=== PATIENT | male | born 1960 | race Caucasian/White ===

== ENCOUNTER 2016-09-08 14:34 | Emergency (ER) | payer OTHER ==
--- NOTE | 2016-09-08 14:55 | CPEKG ---
Heart Rate: 67 RR Interval: 896 P-R Interval: 197 QRSD Interval: 166 QT Interval: 492 QTC Interval: 520 P [place]: -8 QRS [place]: -25 T Wave [place]: 107 EKG Severity - ABNORMAL ECG - EKG Impression: SINUS RHYTHM EKG Impression: LEFT BUNDLE BRANCH BLOCK Electronically Signed By: Candido Graves 08-Sep-2016 15:31:44
--- NOTE | 2016-09-08 15:03 | EDPHY ---
H & P Time Seen by Provider: 09/08/16 15:00 HPI/ROS: HPI: ROS: I am cancelling this chart out and will start a new 1 Smoking Status: Never smoked Constitutional: Initial Vital Signs Temperature (C) 36.5 C 09/08/16 14:43 Heart Rate 66 09/08/16 14:43 Respiratory Rate 22 H 09/08/16 14:43 Blood Pressure 173/88 H 09/08/16 14:43 O2 Sat (%) 95 09/08/16 14:43 O2 Delivery Mode Room Air Allergies/Adverse Reactions: metoprolol Allergy (Severe, Verified 09/08/16 14:42) Hives Home Medications: Medication Instructions Recorded Atorvastatin Calcium [Lipitor 10 10 mg PO HS 03/06/15 mg (*)] Carvedilol [Coreg (*)] 50 mg PO BIDMEAL 03/06/15 Clonidine HCl 0.2 mg PO BID 03/06/15 Furosemide [Lasix 40 MG (*)] 40 mg PO DAILY PRN 03/06/15 hydrALAZINE [Apresoline 50 mg (*)] 100 mg PO TID 03/06/15 Medical Decision Making - Data Points Laboratory Results: 09/08/16 14:50 WBC Pending RBC Pending Hgb Pending Hct Pending MCV Pending MCH Pending MCHC Pending RDW Pending Plt Count Pending MPV Pending Neut % (Auto) Pending Lymph % (Auto) Pending [place] % (Auto) Pending Eos % (Auto) Pending Baso % (Auto) Pending Nucleat RBC Rel Count Pending Absolute Neuts (auto) Pending Absolute Lymphs (auto) Pending Absolute Monos (auto) Pending Absolute Eos (auto) Pending Absolute Basos (auto) Pending Absolute Nucleated RBC Pending Immature Gran % Pending Immature Gran # Pending Sodium Pending Potassium Pending Chloride Pending Carbon Dioxide Pending Anion Gap Pending BUN Pending Creatinine Pending Estimated GFR Pending Glucose Pending Calcium Pending
[2016-09-08 15:06] LABS: % IMMATURE GRANULYOCYTES 0.3 % (0.0-1.1); ABSOLUTE IMMATURE GRANULOCYTES 0.02 10^3/uL (0.00-0.10); ADD DIFF? NO; ADD MORPH? NO; ADD SCAN? NO; ATYPICAL LYMPHOCYTE FLAG 0 (0-99); FRAGMENT RBC FLAG 0 (0-99); HEMATOCRIT 44.7 % (40.0-51.0); HEMOGLOBIN 15.6 g/dL (13.7-17.5); LEFT SHIFT FLG 0 (0-99); LIPEMIA HEMOLYSIS FLAG 90 (0-99); MEAN CELL HEMOGLOBIN 30.5 pg (27.9-34.1); MEAN CELL HEMOGLOBIN CONCENTR. 34.9 g/dL (32.4-36.7); MEAN CELL VOLUME 87.3 fL (81.5-99.8); PLATELET CLUMPS FLAG 0 (0-99); PLATELET COUNT 175 10^3/uL (150-400); RED BLOOD CELL COUNT 5.12 10^6/uL (4.40-6.38)
[2016-09-08 15:21] LABS: ANION GAP 11 mEq/L (8-16); CARBON DIOXIDE 25 mEq/l (22-31); CHLORIDE 105 mEq/L (97-110); CREATININE 1.1 mg/dL (0.7-1.3); GLOMERULAR FILTRATION RATE > 60; GLUCOSE 89 mg/dL (70-100); POTASSIUM 4.3 mEq/L (3.5-5.2); SODIUM 141 mEq/L (134-144)
--- NOTE | 2016-09-08 15:22 | EDPHY ---
H & P Time Seen by Provider: 09/08/16 15:00 HPI/ROS: Chief complaint. Shortness of breath HPI. 55-year-old male with history of congestive heart failure presents with 1 week history of exertional shortness of breath. He was cross[place]country skiing and [facility] 1 month ago without problem now for the past week he short of breath with climbing 1 flight of stairs. He has a pain in his right neck for a week but is not worse with exertion. His shortness of breath is worse with exertion as well as lying down and better with standing. He has been sleeping in a chair. Can't sleep flat. Recent 5 lb weight gain. However no unusual pain or swelling to his ankles. He has been taking his diuretics intermittently as he only has 1 kidney. Denies fever ROS Constitutional. no fever/chills, no weakness Eyes. no problems with vision ENT. no sore throat, no nasal drainage Cardiovascular. no chest pain Respiratory. Shortness of breath with exertion Abdominal. no abdominal pain, no nausea/vomiting, no diarrhea . no problems urinating MS. Right-sided neck pain Skin. no rash Lymph. no swollen glands Neuro. no headache, no dizziness, no difficulty walking or with speech Past Medical/Surgical History: Past medical history is significant congestive heart failure, left bundle branch block, chronic renal insufficiency secondary to 1 kidney, nonischemic cardiomyopathy, dyslipidemia Social History: , nonsmoker, no alcohol Smoking Status: Never smoked Physical Exam: General Appearance: Alert well-developed male mild distress vital signs are stable Eyes: Pupils equal and round no pallor or injection. ENT, Mouth: Mucous membranes are moist. Respiratory: There are no retractions, lungs are clear to auscultation. Cardiovascular: Regular rate and rhythm. Gastrointestinal: Abdomen is soft and nontender, no masses, bowel sounds normal. Neurological: Awake and alert, sensory and motor exams grossly normal. Skin: Warm and dry, no rashes. Musculoskeletal: Neck is supple nontender. Extremities trace pedal edema Psychiatric: Patient is oriented X 3, there is no agitation. Constitutional: Initial Vital Signs Temperature (C) 36.5 C 09/08/16 14:43 Heart Rate 66 09/08/16 14:43 Respiratory Rate 22 H 09/08/16 14:43 Blood Pressure 173/88 H 09/08/16 14:43 O2 Sat (%) 95 09/08/16 14:43 O2 Delivery Mode Room Air Allergies/Adverse Reactions: metoprolol Allergy (Severe, Verified 09/08/16 14:42) Hives Home Medications: Medication Instructions Recorded Atorvastatin Calcium [Lipitor 10 10 mg PO HS 03/06/15 mg (*)] Carvedilol [Coreg (*)] 50 mg PO BIDMEAL 03/06/15 Clonidine HCl 0.2 mg PO BID 03/06/15 Furosemide [Lasix 40 MG (*)] 40 mg PO DAILY PRN 03/06/15 hydrALAZINE [Apresoline 50 mg (*)] 100 mg PO TID 03/06/15 Medical Decision Making - Diagnostics EKG Interpretation: EKG interpreted by me shows normal sinus rhythm with left axis deviation and normal interval. Left bundle branch block. No significant ST elevation or depression. Rate is 67 Imaging: Chest x-ray interpreted by me consistent with mild CHF. No evidence for pneumonia Discussion with Dr. Ardon who notes that patient has new elevation of the right hemidiaphragm as well as some fullness to the mediastinum that was not present on previous chest x-ray CT angiogram chest interpreted by me and reviewed with Dr. Luna shows no evidence of pulmonary embolus. Normal aorta without dissection or aneurysm. Normal mediastinum Procedures: IV normal saline, monitor ED Course/Re-evaluation: Re-evaluation at 5:30 p.m. . Patient is stable. Patient and I discussed imaging, EKG, laboratory evaluation. We discussed treatment plan. I offered admission for further evaluation and echocardiogram. The patient declines and would like to follow up with [facility] as an outpatient. We discussed there may be some risk involved with this. He is encouraged to return for worsening breathing or chest discomfort. Patient expresses understanding and agreement Differential Diagnosis: I considered congestive heart failure, pulmonary embolus, aortic dissection, pneumonia, acute coronary syndrome - Data Points Laboratory Results: Laboratory Results 09/08/16 14:50 09/08/16 14:50 09/08/16 09/08/16 Unknown 14:50 WBC 7.98 10^3/uL (3.80-9.50) RBC 5.12 10^6/uL (4.40-6.38) Hgb 15.6 g/dL (13.7-17.5) Hct 44.7 % (40.0-51.0) MCV 87.3 fL (81.5-99.8) MCH 30.5 pg (27.9-34.1) MCHC 34.9 g/dL (32.4-36.7) RDW 14.0 % (11.5-15.2) Plt Count 175 10^3/uL (150-400) MPV 11.0 fL (8.7-11.7) Neut % (Auto) 66.0 % (39.3-74.2) Lymph % (Auto) 23.7 % (15.0-45.0) [place] % (Auto) 9.5 % (4.5-13.0) Eos % (Auto) 0.1 L % (0.6-7.6) Baso % (Auto) 0.4 % (0.3-1.7) Nucleat RBC Rel Count 0.0 % (0.0-0.2) Absolute Neuts (auto) 5.27 10^3/uL (1.70-6.50) Absolute Lymphs (auto) 1.89 10^3/uL (1.00-3.00) Absolute Monos (auto) 0.76 10^3/uL (0.30-0.80) Absolute Eos (auto) 0.01 L 10^3/uL (0.03-0.40) Absolute Basos (auto) 0.03 10^3/uL (0.02-0.10) Absolute Nucleated RBC 0.00 10^3/uL (0-0.01) Immature Gran % 0.3 % (0.0-1.1) Immature Gran # 0.02 10^3/uL (0.00-0.10) Sodium 141 mEq/L (134-144) Potassium 4.3 mEq/L (3.5-5.2) Chloride 105 mEq/L (97-110) Carbon Dioxide 25 mEq/l (22-31) Anion Gap 11 mEq/L (8-16) BUN 27 H mg/dL (7-23) Creatinine 1.1 mg/dL (0.7-1.3) Estimated GFR > 60 Glucose 89 mg/dL (70-100) Calcium 9.0 mg/dL (8.5-10.4) Troponin I < 0.012 ng/mL (0-0.034) NT-Pro-B Natriuret Pep 217 H pg/mL (0-125) Medications Given: Discontinued Medications Sodium Chloride (Ns) 500 mls @ 0 mls/hr IV ONCE ONE PRN Reason: As Directed Stop: 09/08/16 15:57 Last Admin: 09/08/16 16:05 Dose: 500 mls Departure - Departure Disposition: Home, Routine, Self-Care Clinical Impression: Dyspnea Qualifiers: Dyspnea type: dyspnea on exertion Qualifier Code: (R06.09) Other forms of dyspnea Condition: Good Instructions: Dyspnea (ED), Dyspnea Scale and Exercise (ED) Additional Instructions: Continue regular medications. Easy activity. Return for worsening breathing, fever, chest discomfort. Follow up with Dr. burr in the next few days if not improving and try to move your appointment with [facility] up. Referrals: RAMBO BAJWA [Primary Care Provider] - 2-3 days, if not improved
--- NOTE | 2016-09-08 15:53 | DX ---
Chest, PA and Lateral History: Dyspnea on exertion , history of heart and kidney disease Comparison: March 06, 2015 Findings: There is new mild elevation of the right hemidiaphragm associated with possible new right m ediastinal widening.. Lungs are clear, without infiltrate or consolidation. Heart size is larger lobito n previously, but still normal. The pulmonary vascularity remains normal. There is no pulmonary nodul e or mass lesion. There is no pleural effusion or pneumothorax. Bones are unremarkable for age. EKG l anton overlie the chest. There is stable low cervical orthopedic fixation fusion hardware. Impression: New right diaphragmatic elevation with possible right mediastinal mass. Recommend chest C T with IV contrast for further evaluation. If there is concern for diaphragmatic paralysis, then cons ider a fluoroscopic "sniff test". Results discussed with Dr. Candido Graves at 3:48 p.m.
[2016-09-08] MEDS ORDERED: NS 500 ML IV ONE (15:56)
[2016-09-08 16:12] LABS: TROPONIN I < 0.012 ng/mL (0-0.034)
[2016-09-08] MEDS ORDERED: IOPAMIDOL (ISOVUE 370) 100 ML BTL IV ONE (16:12)
--- NOTE | 2016-09-08 17:40 | CT ---
CT Pulmonary Angiogram History: Possible mediastinal widening, dyspnea. Technique: Axial contrast-enhanced images were obtained through the chest following the uneventful in travenous administration of 90 mL Isovue-370. Creatinine is 1.1. Multiplanar reformations were perf ormed through the pulmonary arteries. Dose reduction techniques were utilized. Comparison: PA and lateral chest September 08, 2016, March 06, 2015, January 15, 2011. Findings: This is a good quality study with visualization of the vessels to the subsegmental level. There is no visible pulmonary embolus. There is mild diffuse peribronchial thickening, with mild ri ght basilar atelectasis. Mild cardiomegaly is present. Mild coronary artery atherosclerosis is pres ent, most prominent in the LAD. The aorta is normal caliber, without dissection. No pathologically enlarged lymph nodes are identified. Multiple venous collaterals are noted over the left neck and ch est, with narrowing of the left subclavian vein. Cervical fusion hardware is incompletely visualized . 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 Mild compression fractures in the thoracic spine are stable. The gallbladder is decompressed. Contour irregularity of the spleen suggests sequela of old infarct or trauma. There are separate origins of the hepatic and gastric and splenic arteries from the aorta , a normal variant, with mild stenoses at their origins. Impression: 1. Normal caliber aorta. 2. Bronchitis, with mild right basilar atelectasis. 3. Narrowing of the left subclavian vein. 4. Mild coronary artery atherosclerosis. 5. Additional findings, as above. Findings discussed with Candido Graves M.D., on September 08, 2016 at 1724 hours. E:[email or web address]
[2016-09-08 17:49] VITALS: BP 177/98; PULSE 63; RESP 20; TEMP 98.1; O2SAT 95
== END 2016-09-08 17:50 | disposition home or self-care (01) ==
DX: R06.09 Other forms of dyspnea (principal)
CPT/HCPCS: Q9967